=== PATIENT | female | born 1960 | race Caucasian/White ===

== ENCOUNTER → 2021-07-07 | Outpatient (REF) | payer OTHER ==
[~2021-07-07] MED LIST: BACT800T5 PO; MOTR200T44 PO; TYLE325T5 PO; vitamin b 12 PO; vitamin c PO; vitamin d PO
== END ==
LOC: M LAB REF 17:14
PROVIDERS: ATTEND Internal Medicine Endocrinology, Diabetes & Metabolism
DX: E04.1 Nontoxic single thyroid nodule (principal); E04.2 Nontoxic multinodular goiter

== ENCOUNTER 2021-09-04 06:51 | Day surgery (SDC) | payer OTHER ==
[~2021-09-04] VITALS: Ht 165.1 cm; Wt 82.1 kg
[~2021-09-04 06:51] MED LIST changes: +ACET32TAB PO; +NS 1,000 ML IV ONE; +VITA-243 PO
[2021-09-04] MEDS ORDERED: propofoL 200 MG/20 ML VIAL As Ordered ONE ×2 (08:34→08:46)
[2021-09-04] MEDS ORDERED: LIDOCAINE 2% 100MG/5ML SDV (FOR ANES.) As Ordered ONE (08:34)
[2021-09-04] MEDS ORDERED: GLYCOPYRROLATE INJ 0.2 MG/ML 2 ML VIAL As Ordered ONE (08:46)
[2021-09-04] MEDS ORDERED: ePHEDrine SULFATE 25 MG/5 ML(5MG/ML) SYRINGE As Ordered ONE (09:02)
[2021-09-04 09:25] VITALS: BP 129/71
== END 2021-09-04 09:35 | disposition home or self-care (01) ==
LOC: M OPP 06:51
PROVIDERS: ATTEND Internal Medicine Gastroenterology
DX: Z12.11 Encounter for screening for malignant neoplasm of colon (principal); D12.6 Benign neoplasm of colon, unspecified; K64.8 Other hemorrhoids